=== PATIENT | male | born 1940 | race Caucasian/White ===

== ENCOUNTER 2018-10-08 19:04 | Inpatient (IN) ==
[2018-10-09] MEDS ORDERED: Metoprolol Tartrate 25 MG Tablet PO SCH ×2 (05:00→11:45)
[2018-10-09 05:04] LABS: Hematocrit 39.8 % (39.0-51.0); Hemoglobin 13.6 gm/dL (13.0-17.0); Mean Corpuscular HGB Conc 34.1 % (32.0-36.0); Mean Corpuscular Hemoglobin 32.5 pg (27.0-34.0); Mean Corpuscular Volume 95.1 fL (80.0-100.0); Mean Platelet Volume 7.4 fL (7.0-11.0); Platelet Count 145 th/mm3 (150-450); Red Blood Count 4.18 mil/mm3 (4.50-5.90); Red Cell Distribution Width 13.9 % (11.6-17.2); White Blood Count 6.2 th/mm3 (4.0-11.0)
[2018-10-09 05:34] LABS: Calcium 8.2 mg/dL (8.5-10.1); Carbon Dioxide 27.3 meq/L (21.0-32.0); Potassium 4.2 meq/L (3.5-5.1)
[2018-10-09] MEDS ORDERED: Bacitracin Oint 0.9 GM Packet TOPICAL ONE (08:00)
[2018-10-09] MEDS ORDERED: Insulin Regular (For Infusion) 100 UNIT in Sodium Chlor 0.9% Inj 99 ML IV.CONT PRN (11:01)
[2018-10-09] MEDS ORDERED: Dextrose 50% in Water 50 ML Vial IV.PUSH PRN (11:01)
[2018-10-09] MEDS ORDERED: Acetaminophen 325 MG Tablet PO PRN (11:08)
[2018-10-09] MEDS: Enoxaparin Inj 100 MG/ML Syringe SQ SCH ×2 (11:08→21:21)
[2018-10-09] MEDS ORDERED: Chlorhexidine 4% Topical 120 APPLIC/120 ML Bottle TOPICAL SCH (11:15)
[2018-10-09] MEDS ORDERED: Sodium Chlor 0.9% Inj 77.5 ML, Papaverine Inj 60 MG, Nitroglycerin Inj 100 MCG, dilTIAZ... IRRIGATION SCH ×3 (11:15)
[2018-10-09] MEDS ORDERED: Sodium Chloride 0.9% Irr Bot 500 ML, ceFAZolin Inj 500 MG IRRIGATION SCH ×2 (11:15)
[2018-10-09] MEDS ORDERED: ceFAZolin 2 GM Premix Inj 2 GM/50 ML PIGGYBACK IV.SIG SCH (12:00)
[2018-10-09] MEDS ORDERED: ceFAZolin Inj 2,000 MG in Sodium Chlor 0.9% Inj 80 ML IV.SIG SCH (12:00)
[2018-10-09 12:22] LABS: INR 1.1 Ratio; Prothrombin Time 11.2 sec (9.8-11.6)
--- NOTE | 2018-10-09 12:22 | P.PNCV ---
- Note Subjective/Hospital Course: pt seen and evaluated, full consult to follow sts data discussed with pt RISK SCORES Procedure: Isolated CAB CALCULATE Risk of Mortality: 2.596% Renal Failure: 1.255% Permanent Stroke: 0.841% Prolonged Ventilation: 5.892% DSW Infection: 0.135% Reoperation: 2.092% Morbidity or Mortality: 9.578% Short Length of Stay: 35.959% Long Length of Stay: 4.975% Objective: Vital Signs - 24 hr 10/08/18 20:30 10/09/18 07:56 10/09/18 11:06 Temperature 97.8 F 98 F 98 F Pulse Rate 58 L 67 62 Respiratory Rate 18 17 17 Blood Pressure 105/55 L 123/63 111/61 Pulse Oximetry 96 100 100 Labs: Laboratory Results - last 12 hr 10/09/18 10/09/18 10/09/18 04:52 04:52 11:50 WBC 6.2 RBC 4.18 L Hgb 13.6 Hct 39.8 MCV 95.1 MCH 32.5 MCHC 34.1 RDW 13.9 Plt Count 145 L MPV 7.4 Sodium 143 Potassium 4.2 Chloride 109 H Carbon Dioxide 27.3 Anion Gap 7 BUN 16 Creatinine 0.89 Estimated GFR 83 L Random Glucose 99 Calcium 8.2 L Blood Type O Positive Blood Type Recheck Required MTS Gel Crossmatch See Detail Result Diagrams: 10/09/18 04:52 10/09/18 04:52
[2018-10-09 12:29] LABS: Albumin 3.2 g/dL (3.4-5.0)
[2018-10-09 12:32] LABS: Total Protein 7.2 g/dL (6.4-8.2)
--- NOTE | 2018-10-09 13:22 | XR ---
EXAM DATE: 10/09/2018 1:19 PM EST AGE/SEX: 78 years / Male INDICATIONS: Evaluate for pneumonia, pneumothorax, or communicable disease. Pre-op cardiac surgery. CLINICAL DATA: This is the patient's initial encounter. Patient reports that signs and symptoms have been present for 1 day and indicates a pain score of 0/10. MEDICAL/SURGICAL HISTORY: Cardiovascular disease. None. COMPARISON: No prior exams available for comparison. FINDINGS: PA and lateral views of the chest demonstrate the lungs to be symmetrically aerated without evidence of mass, infiltrate or effusion. The cardiomediastinal contours are unremarkable. Mild degenerative c hanges and scoliosis of the thoracolumbar spine are noted. CONCLUSION: 1. No acute cardiopulmonary disease. 2. Mild degenerative changes and scoliosis of the thoracolumbar spine. Electronically signed by: Nathan Sahu MD Board Certified Radiologist 10/09/2018 1:21 PM EST
[2018-10-09 13:36] LABS: Bilirubin,Urine Negative (Negative); Clarity,Urine Clear (Clear); Color,Urine Yellow (Yellw/Straw); Glucose,Urine (UA) Negative (Negative); Leukocyte Esterase,Urine Negative (Negative); Mucus,Urine Few /lpf (Occasional); Nitrite,Urine Negative (Negative); Specific Gravity,Urine 1.017 (1.002-1.035)
--- NOTE | 2018-10-09 14:40 | US ---
EXAM DATE: 10/09/2018 2:37 PM EST AGE/SEX: 78 years / Male INDICATIONS: Pre op cardiac surgery. CLINICAL DATA: This is the patient's initial encounter. Patient reports that signs and symptoms have been present for 1 day and indicates a pain score of 0/10. MEDICAL/SURGICAL HISTORY: . Throat cancer. Chemotherapy. Radiation therapy. Tonsillectomy. Ap pendectomy. Aortic stent. Back surgery. Left wrist fracture repair. Right elbow surgery. COMPARISON: No prior exams available for comparison. VELOCITY PARAMETERS: ICA/CCA Ratio: Right 0.9 , Left 0.6 ICA: Right 69 cm/sec, Left 62 cm/sec CCA: Right 78 cm/sec, Left 98 cm/sec ECA: Right 66 cm/sec, Left 60 cm/sec Vertebral: Right 50 cm/sec antegrade, Left 49 cm/sec antegrade FINDINGS: Right Carotid: No significant plaque is visualized.The waveforms are within normal limits. Left Carotid: No significant plaque is visualized. The waveforms are within normal limits. Other: None. CONCLUSION: 1. Right Internal Carotid Artery: No significant stenosis or atherosclerotic plaque is visualized. 2. Left Internal Carotid Artery: No significant stenosis or atherosclerotic plaque is visualized. Electronically signed by: Nathan Sahu MD Board Certified Radiologist 10/09/2018 2:39 PM EST
--- NOTE | 2018-10-09 14:44 | US ---
EXAM DATE: 10/09/2018 2:40 PM EST AGE/SEX: 78 years / Male INDICATIONS: Pre op cardiac surgery. CLINICAL DATA: This is the patient's initial encounter. Patient reports that signs and symptoms have been present for 1 day and indicates a pain score of 0/10. MEDICAL/SURGICAL HISTORY: . Throat cancer. Chemotherapy. Radiation therapy. Tonsillectomy. Ap pendectomy. Aortic stent. Back surgery. Left wrist fracture repair. Right elbow surgery. COMPARISON: No prior exams available for comparison. TECHNIQUE: Venous ultrasound of both lower extremities was performed from the inguinal ligament to t he proximal calf. Real-time, color Doppler and spectral tracing, compression and augmentation techni ques were used. FINDINGS: Right Leg: Normal compression of the deep venous system from the inguinal region to the proximal jimmy f. No echogenic clot is seen. Normal response of the venous system to augmentation and respiration. Left Leg: Normal compression of the deep venous system from the inguinal region to the proximal calf . No echogenic clot is seen. Normal response of the venous system to augmentation and respiration. Other: None. CONCLUSION: 1. The study is negative for bilateral lower extremity deep venous thrombosis. Electronically signed by: Nathan Sahu MD Board Certified Radiologist 10/09/2018 2:43 PM EST
--- NOTE | 2018-10-09 14:46 | US ---
EXAM DATE: 10/09/2018 2:38 PM EST AGE/SEX: 78 years / Male INDICATIONS: Pre op cardiac surgery. CLINICAL DATA: This is the patient's initial encounter. Patient reports that signs and symptoms have been present for 1 day and indicates a pain score of 0/10. MEDICAL/SURGICAL HISTORY: . Throat cancer. Chemotherapy. Radiation therapy. Tonsillectomy. Ap pendectomy. Aortic stent. Back surgery. Left wrist fracture repair. Right elbow surgery. COMPARISON: [facility] – [place] VENOUS DOPPLER LEG BI, 10/09/2018. . MEASUREMENTS: RIGHT THIGH: Proximal:__5 mm Mid:__ 3 mm Distal:__3 mm LEFT THIGH: Proximal:__7 mm Mid:__4 mm Distal:__3 mm RIGHT CALF: Proximal:__3 mm Mid:__2 mm Distal:__2 mm LEFT CALF: Proximal:__4 mm Mid:__3 mm Distal:__2 mm FINDINGS: The venous system of the lower extremities are patent by color Doppler imaging. Measurements of the leg veins (in mm) are listed above. CONCLUSION: 1. Lower extremity venous mapping and measurements are detailed above. No thrombosis is noted within either saphenous vein. Electronically signed by: Nathan Sahu MD Board Certified Radiologist 10/09/2018 2:45 PM EST
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
[2018-10-09 16:45] LABS: Hemoglobin A1c 5.5 % (4.3-6.0)
[2018-10-10] MEDS: Enoxaparin Inj 100 MG/ML Syringe SQ SCH (09:16)
--- NOTE | 2018-10-10 15:50 | ECG ---
Date Performed: 10/09/2018 Time Performed: 15:01:42 PTAGE: 78 years EKG: Sinus rhythm Possible inferior infarct - age undetermined Lateral ST-T changes may be due to myocardial ischemia Abnormal ECG NO PREVIOUS TRACING DOCTOR: Jimmy Sloan Interpretating Date/Time 10/10/2018 15:48:43
--- NOTE | 2018-10-10 16:48 | P.PNCV ---
- Note Subjective/Hospital Course: A 78-year-old male, patient of Dr. Henry Leahy, Dr. Fina Rodney, who presented to [facility] on 10/07/2018 with complaint of fatigue and nausea. Apparently the morning that he was admitted, he felt lightheaded and dizzy after mowing his lawn and weedwacking, went back inside and laid down and felt a little better, and then the same symptoms recurred. He also had pain and discomfort down his right arm and then had some shakiness in his right hand and also a headache. Denied having any chest pain or shortness of breath. No nausea or vomiting. He did have some elevated troponins and was ruled in for a non-STEMI. Troponin elevated at 1.16. He underwent a cardiac catheterization following the CT scan which showed no acute intracranial hemorrhage, some gross brain parenchymal edema or mass effect. They proceeded with a heart catheterization which showed an ejection fraction of 45%, left main disease of 60%, mid LAD 90% stenosis, the left circumflex was 90%, the first OM was 90% and the RCA was 95% stenosed. The patient was then transferred to our facility to be evaluated for coronary artery bypass grafting. 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 Mederos every 6 months, gastroesophageal reflux disease, arthritis. 10/10 pt pain free scheduled for surgery in am carotid US: Ok lower ext vein mapping : Ok Objective: Vital Signs - 24 hr 10/09/18 17:03 10/09/18 17:24 10/09/18 18:12 Temperature 97.8 F Pulse Rate 72 68 56 L Respiratory Rate 17 Blood Pressure 113/58 L Pulse Oximetry 98 10/09/18 19:00 10/09/18 20:00 10/09/18 21:00 Temperature Pulse Rate 60 76 76 Respiratory Rate Blood Pressure Pulse Oximetry 10/09/18 22:00 10/09/18 23:00 10/10/18 00:00 Temperature Pulse Rate 76 55 L 78 Respiratory Rate Blood Pressure Pulse Oximetry 10/10/18 01:00 10/10/18 02:00 10/10/18 03:00 Temperature Pulse Rate 76 76 60 Respiratory Rate Blood Pressure Pulse Oximetry 10/10/18 04:00 10/10/18 05:00 10/10/18 06:00 Temperature Pulse Rate 76 74 73 Respiratory Rate Blood Pressure Pulse Oximetry 10/10/18 07:00 10/10/18 08:00 10/10/18 09:00 Temperature Pulse Rate 61 72 62 Respiratory Rate Blood Pressure Pulse Oximetry 10/10/18 09:15 10/10/18 10:00 10/10/18 11:00 Temperature 98 F Pulse Rate 60 60 59 L Respiratory Rate 17 Blood Pressure 105/55 L Pulse Oximetry 95 10/10/18 11:21 10/10/18 12:00 10/10/18 13:00 Temperature 97.9 F Pulse Rate 58 L 62 76 Respiratory Rate 16 Blood Pressure 101/61 Pulse Oximetry 97 10/10/18 14:00 10/10/18 15:00 10/10/18 15:52 Temperature 97.8 F Pulse Rate 64 63 59 L Respiratory Rate 16 Blood Pressure 97/64 L Pulse Oximetry 96 10/10/18 16:00 Temperature Pulse Rate 61 Respiratory Rate Blood Pressure Pulse Oximetry GENERAL: SKIN: Warm and dry. HEAD: Normocephalic. EYES: No scleral icterus. No injection or drainage. NECK: Supple, trachea midline. No JVD or lymphadenopathy. CARDIOVASCULAR: Regular rate and rhythm without murmurs, gallops, or rubs. RESPIRATORY: Breath sounds equal bilaterally. No accessory muscle use. GASTROINTESTINAL: Abdomen soft, non-tender, nondistended. MUSCULOSKELETAL: No cyanosis, or edema. BACK: Nontender without obvious deformity. No CVA tenderness. Result Diagrams: 10/09/18 04:52 10/09/18 04:52 for surgery in am o ASA, statin
[2018-10-11] MEDS ORDERED: Chlorhexidine Gluconate 2% 1 Pack (2 Cloths) TOPICAL ONE (02:48)
[2018-10-11] MEDS ORDERED: Metoprolol Tartrate 25 MG Tablet PO SCH (02:48)
[2018-10-11] MEDS ORDERED: Sodium Chlor 0.9% Inj 500 ML IV.SIG SCH (03:00)
[2018-10-11] MEDS ORDERED: Heparin - SQ 10,000 UNITS/ML Vial ONE (06:07)
[2018-10-11] MEDS ORDERED: ceFAZolin 1 GM Premix Inj 1 GM/50 ML PIGGYBACK IV.SIG ONE (11:29)
[2018-10-11] MEDS ORDERED: Potassium Chlor 40 mEq Premix 40 MEQ/100 ML PIGGYBACK ONE (11:36)
[2018-10-11] MEDS ORDERED: Magnesium Sulfate Inj 2 GM in Sodium Chlor 0.9% Inj 96 ML IV.SIG PRN (12:02)
[2018-10-11] MEDS ORDERED: Potassium Chlor 20 mEq Premix 20 MEQ/100 ML PIGGYBACK IV.SIG PRN ×2 (12:02)
[2018-10-11] MEDS ORDERED: Insulin Regular (For Infusion) 100 UNIT in Sodium Chlor 0.9% Inj 99 ML IV.CONT PRN (12:02)
[2018-10-11] MEDS ORDERED: Calcium Chloride Inj 1 GM/10 ML Syringe IV.PUSH PRN (12:02)
[2018-10-11] MEDS ORDERED: Dexmedetomidine Inj 200 MCG in Sodium Chlor 0.9% Inj 48 ML IV.CONT PRN (12:02)
[2018-10-11] MEDS ORDERED: Post-op Orders (for Pharmacy) OTHER STA (12:02)
[2018-10-11] MEDS ORDERED: RESP: Racemic Epinephrine 2.25% 0.5 ML Neb NEB PRN (12:02)
[2018-10-11] MEDS ORDERED: Dextrose 50% in Water 50 ML Vial IV.PUSH PRN (12:02)
[2018-10-11] MEDS ORDERED: Phenylephrine Inj 40 MG in Sodium Chlor 0.9% Inj 496 ML IV.CONT PRN (12:02)
[2018-10-11] MEDS ORDERED: EPINEPHrine (1:1000) Inj 2 MG in Sodium Chlor 0.9% Inj 248 ML IV.CONT PRN (12:02)
[2018-10-11] MEDS ORDERED: Metoprolol Inj 5 MG/5 ML Vial IV.PUSH PRN (12:02)
[2018-10-11] MEDS ORDERED: Ketorolac Inj 30 MG/ML (IVP) Vial IV.PUSH PRN (12:02)
[2018-10-11] MEDS ORDERED: Morphine Sulfate Inj 2 MG/ML Vial IV.PUSH PRN (12:02)
--- NOTE | 2018-10-11 12:09 | P.OP ---
Date of procedure: 10/11/18 Anesthesia: IRMA Surgeon: Lakeisha Feliciano MD Operation and Findings: PREPROCEDURE DIAGNOSES 1. Severe Multi Vessel Coronary Artery Disease. 2. Acute Myocardial Infarction (NSTEMI) POSTPROCEDURE DIAGNOSES Same SURGICAL PROCEDURE 1. Urgent Off-pump Coronary Artery Bypass Grafting x 3 with Left Internal Mammary Artery (SHRESTHA) to Left Anterior Descending (LAD), reverse saphenous vein graft to obtuse Marginal branch of the left Circumflex artery, reverse saphenous vein graft to the posterior Descending branch of the right Coronary artery 2. Left leg Endoscopic Vein [place] 3. Intraoperative Vein Mapping. SURGEON Lakeisha Feliciano MD STUDENT TRUCK DRIVER JO ANN Brito ANESTHESIA General endotracheal CONTINUOUS MINER TONY Velasquez MD PREPARATION ChloraPrep. COUNTS Needle, sponge, and instrument counts were correct. DRAINS Two 32-Wolof mediastinal tubes. COMPLICATIONS None. INDICATIONS FOR PROCEDURE The patient is a 78-year-old presenting with right arm pain, nausea and dizziness. Patient was noted to have acute myocardial infarction with multi vessel coronary artery disease. The patient is being brought to the operating room for surgical revascularization therapy. PROCEDURE Patient was brought to the operating room and placed supine on the OR table. Following the induction of adequate general endotracheal anesthesia and placement of appropriate monitoring devices, intraoperative vein mapping was performed which revealed large but usable-caliber conduit in bilateral lower extremities. The patient was then prepped and draped in standard sterile fashion. Next, 2500 units of intravenous heparin was given. The left greater saphenous vein was harvested endoscopically. This appeared to be a useable- caliber conduit. Simultaneously, a median sternotomy was performed and the left internal mammary artery dissected free off the posterior sternal table. The patient was systemically heparinized and anticoagulation monitored by serial ACT measurements. The internal mammary artery had good pulsatile flow in it and was a good-caliber conduit. The pericardium was then divided in the midline , the cradle created and targets analyzed. At this point, all anastomoses were performed in a beating-heart fashion using the [employer] stabilizing system. The left internal mammary artery was anastomosed to the mid LAD (2 mm) in an end-to- side fashion using 7-0 Prolene. Segment of saphenous vein graft was then anastomosed to the OM1 (1.5 mm) in an end-to-side fashion using 7-0 Prolene. The final segment was anastomosed to the RPDA (1.75 mm) in an end-to-side fashion using 7-0 Prolene. The OM 2 territory was explored, however, the target vessel was deemed to be too small and nongraftable at less than 1 mm. The proximal anastomoses were then constructed to the ascending aorta in a running manner using 6-0 Prolene. All anastomotic sites were inspected and appeared to be hemostatic and patent. Protamine solution was given. Strict hemostasis was assured. The closure was undertaken. 2 chest tubes were placed. The pericardium was reapproximated in the midline. The sternum was approximated using sternal wires. The muscular and fascial layer were then closed in 3 layers. The endoscopic vein harvest site was closed in 2 layers. The patient tolerated the procedure well and was transferred to CVICU in stable condition.
[2018-10-11] MEDS ORDERED: ceFAZolin Inj 2,000 MG in Sodium Chlor 0.9% Inj 80 ML IV.SIG SCH (13:00)
[2018-10-11] MEDS ORDERED: fentaNYL Citrate Inj 250 MCG/5 ML Ampul ONE (13:04)
[2018-10-11] MEDS: Calcium Chloride Inj 1 GM in Sodium Chlor 0.9% Inj 100 ML IV.SIG PRN ×2 (13:17→19:52)
[2018-10-11] MEDS: Albumin Human 5% Inj 250 ML IV.SIG PRN ×2 (13:19→13:55)
--- NOTE | 2018-10-11 13:48 | XR ---
EXAM DATE: 10/11/2018 1:44 PM EST AGE/SEX: 78 years / Male INDICATIONS: Post-OP CABG. CLINICAL DATA: This is the patient's subsequent encounter. Patient reports that signs and symptoms h ave been present for 3 days and indicates a pain score of Nonresponsive. MEDICAL/SURGICAL HISTORY: Non-responsive. Non-responsive. COMPARISON: [facility] – [place], CHEST 2V PA&LAT, 10/09/2018. . FINDINGS: ET tube and left chest tube in good position. Left central line in good position. Minimal bibasilar p arental changes worse on the left Mediastinum appears appropriate. CONCLUSION: Satisfactory postoperative chest. Electronically signed by: Wally Hamlin MD Board Certified Radiologist 10/11/2018 1:46 PM EST
--- NOTE | 2018-10-11 14:27 | P.DCO ---
- Diagnosis (1) S/P CABG x 3 Status: Acute (2) CAD (coronary artery disease), [place] coronary artery Status: Acute (3) Hyperlipidemia Status: Chronic (4) Hx of tongue cancer Status: Resolved - Home Health Nursing Order: Medical education, Signs/symptoms of disease process, Wound care and dressing changes, Nursing assessment with vital signs Instructions: Heart and Vascular Surgery patients *Special attention to sternal dressing Mandatory frequency Assess and evaluation, 4 days in a row The next week 3X week 2 times a week for 4 weeks 1 time a week for 5 weeks Schedule Heart and Vascular patients for full 60 day certification period Initial visit Review Open Heart Surgery Discharge Instructions (Sternal precautions, Activity, Elastic hose, Incision care, Driving, Incentive spirometry, Smoking, [place], Work and other) Need Betadine to paint incision Medication reconciliation Importance of follow up care/ check on appointments Make calendar record temperature daily When to call [facility] at Home nurse, review instructions, phone list Incentive Spirometry, demonstration Visit 1- Begin discharge instruction for patient family and/ or caregiver using teach back method- Signs and symptoms of infection Disease characteristics Medicines and side effects Foods and nutrition/ appetite Infection control/ hand washing/ hygiene Visit 2- Continue teaching Discharge instructions- include additional information on smoking cessation , sternal dressing (sternal vac) Visit 3- Continue teaching- Cough and deep breathing, incision monitoring. Choose my plate Visit 4- Continue teaching- Discuss limitations Discuss how they are feeling Discuss progress toward goals Remaining visits- continue teaching and monitoring For any questions please call : Sunday 8am-5pm Heart & Vascular Surgery Office ( Dr. Feliciano & Dr. Valencia), After Hours / Nights (5pm -8am) Weekends and Holidays Please call [facility] Cardiac Intermediate Care Unit (CIC) Charge Nurse PREVENA Single Use Negative Wound Therapy System Caregiver Instruction Sheet 1. A Prevena dressing system was applied to the chest incision during surgery , to promote wound healing. It works via a suction device (negative pressure wound therapy) to remove low to moderate levels of exudate (drainage) and infectious materials. We recommend that the device stay in place for up to seven days, from day of surgery. 2. Day of Surgery___/ Day of Removal 3. The dressing should only be removed by a health cna caregiver. Please arrange removal of device to coincide with Home Health visit and or with Nursing staff at Rehab 4. If skin reddening or irritation of skin occurs, or excessive drainage, please notify the Cardiovascular Surgeons office at [phone]. 5. Light showering is permissible; however the pump should be disconnected and placed in safe location, where it will not get wet. The dressing should not be exposed to direct spray or submerged in water. No bath tub / shower only. Ensure the end of the tubing attached to the dressing is facing down so that water does not enter the top of the tube. 6. To remove Prevena dressing: press purple button to turn off device / remove the suction. Then disconnect the tubing from the pump. The fixation strips should be stretched away from the skin and the dressing lifted at one corner and peeled back until it has been fully removed. 7. After removal, it is ok to shower daily using liquid dial soap and clean wash cloth, rinse and pat dry, and leave incision open to air dry. For any concerns regarding Prevena dressing, and or wounds, please contact Cristina Mosquera, patient navigator at [phone] or notify the Cardiovascular Surgeons office at [phone]. Incentive spirometry Q1 hr x 10, while awake, also use acapella device hourly whole awake Sternal Breast Bone Precautions: NO pushing or pulling, ( pt must use sternal pillow to support chest with all activities and with coughing ( takes up to 3 months breast bone to heal ) Daily incision care: ok to shower daily, no tub bath. Wash all incisions with liquid dial soap, clean wash cloth to each site, rinse and pat dry. Observe for any signs of infection, such as drainage which is dark yellow, ndiaye, green or foul smelling. Immediately report to the surgeon any drainage from the chest incision, or legs, and for any abnormal drainage from the chest tube sites. Notify surgeon if any temp >101.5 degrees F. When specialty dressing removed/ or if you do not have one, continue to shower daily as above, then rinse and pat incision dry and paint with betadine daily x 5 days. Allow steri strips to fall off if you have any. Avoid lotions, creams, salves, oils, etc. for the first month Please see attached forms for additional instructions regarding post Open Heart specialty wound vacuum dressings. ANGÉLICA or Prevena , Dressing to be removed by Nursing staff on __10/18/18 F/U appointment: as per [place] instructions: PCP in 2 weeks, CV surgeon 2 weeks, Granulating Machine Operator 3-4 weeks For any questions regarding incisions/ dressing / meds / post op care or above Symptoms, Sunday 8am-5pm Heart & Vascular Surgery Office ( Dr. Feliciano & Dr. Valencia), After Hours / Nights (5pm -8am) Weekends and Holidays Please call [facility] Cardiac Intermediate Care Unit (CIC) Charge Nurse - Case Management Consult Case Management Consult-Home Health: Yes - Certification I have seen patient Wenceslao Ross on 10/11/18. My clinical findings support the need for the requested home health care services because: Deconditioned with increased weakness I certify that my clinical findings support that this patient is homebound because: Post-op weakness
[2018-10-11] MEDS: Potassium Chlor 20 mEq Premix 20 MEQ/100 ML PIGGYBACK IV.SIG PRN ×3 (16:15→20:13)
[2018-10-11] MEDS: ceFAZolin 2 GM Premix Inj 2 GM/50 ML PIGGYBACK IV.SIG SCH (20:53)
[2018-10-11] MEDS: Amiodarone 200 MG Tablet PO SCH (20:54)
[2018-10-12] MEDS: fentaNYL Citrate Inj 100 MCG/2 ML Ampul IV.PUSH PRN ×2 (01:00→03:45)
[2018-10-12 03:41] LABS: Hematocrit 26.4 % (39.0-51.0); Hemoglobin 9.2 gm/dL (13.0-17.0); Mean Corpuscular HGB Conc 34.9 % (32.0-36.0); Mean Corpuscular Hemoglobin 32.8 pg (27.0-34.0); Mean Corpuscular Volume 94.1 fL (80.0-100.0); Mean Platelet Volume 7.7 fL (7.0-11.0); Platelet Count 116 th/mm3 (150-450); Red Cell Distribution Width 13.7 % (11.6-17.2); White Blood Count 9.2 th/mm3 (4.0-11.0)
[2018-10-12] MEDS: ceFAZolin 2 GM Premix Inj 2 GM/50 ML PIGGYBACK IV.SIG SCH ×3 (04:00→20:43)
[2018-10-12 04:06] LABS: Anion Gap 6 meq/L (5-15); Blood Urea Nitrogen 16 mg/dL (7-18); Calcium 8.2 mg/dL (8.5-10.1); Carbon Dioxide 25.8 meq/L (21.0-32.0); Chloride 112 meq/L (98-107); Glomerular Filtration Rate Greater Than 89 mL/min (>89); Glucose,Random 128 mg/dL (74-106); Magnesium 1.7 mg/dL (1.5-2.5); Potassium 4.7 meq/L (3.5-5.1); Sodium 144 meq/L (136-145)
[2018-10-12] MEDS: Magnesium Sulfate Inj 2 GM in Sodium Chlor 0.9% Inj 96 ML IV.SIG PRN ×2 (04:30→07:52)
--- NOTE | 2018-10-12 04:49 | XR ---
EXAM DATE: 10/12/2018 4:03 AM EST AGE/SEX: 78 years / Male INDICATIONS: Shortness of breath, possible pneumothorax. CLINICAL DATA: This is the patient's subsequent encounter. Patient reports that signs and symptoms h ave been present for 4 - 6 days and indicates a pain score of 8/10. MEDICAL/SURGICAL HISTORY: Carcinoma, esophageal. CABG. Tonsillectomy. Appendectomy. [place] [facility] [place]. . FINDINGS: Single view the chest centered the left subclavian line, left-sided chest tube and mediastinal drain are all stable. There is no visible pneumothorax. Minimal consolidation in the left lower lobe with s mall pleural effusion. Small pleural effusion on the right. There is a subtle interface overlying the right lung apex similar to the left not classic for pneumothorax. CONCLUSION: Bilateral pleural effusions and some consolidation left lung base unchanged. Tubes and catheter in go od position. No definite pneumothorax seen. There is a subtle interface overlying the right lung apex tip could represent a tiny pneumothorax. It is certainly not any larger. Electronically signed by: Sage Jose MD Board Certified Radiologist 10/12/2018 4:48 AM EST
--- NOTE | 2018-10-12 07:40 | P.PNCV ---
- Note Subjective/Hospital Course: A 78-year-old male, patient of Dr. Henry Leahy, Dr. Fina Rodney, who presented to [facility] on 10/07/2018 with complaint of fatigue and nausea. Apparently the morning that he was admitted, he felt lightheaded and dizzy after mowing his lawn and weedwacking, went back inside and laid down and felt a little better, and then the same symptoms recurred. He also had pain and discomfort down his right arm and then had some shakiness in his right hand and also a headache. Denied having any chest pain or shortness of breath. No nausea or vomiting. He did have some elevated troponins and was ruled in for a non-STEMI. Troponin elevated at 1.16. He underwent a cardiac catheterization following the CT scan which showed no acute intracranial hemorrhage, some gross brain parenchymal edema or mass effect. They proceeded with a heart catheterization which showed an ejection fraction of 45%, left main disease of 60%, mid LAD 90% stenosis, the left circumflex was 90%, the first OM was 90% and the RCA was 95% stenosed. The patient was then transferred to our facility to be evaluated for coronary artery bypass grafting. 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 Medreos every 6 months, gastroesophageal reflux disease, arthritis. 10/10 pt pain free scheduled for surgery in am carotid US: Ok lower ext vein mapping : Ok 10/11 SURGICAL PROCEDURE 1. Urgent Off-pump Coronary Artery Bypass Grafting x 3 with Left Internal Mammary Artery (SHRESTHA) to Left Anterior Descending (LAD), reverse saphenous vein graft to obtuse Marginal branch of the left Circumflex artery, reverse saphenous vein graft to the posterior Descending branch of the right Coronary artery 2. Left leg Endoscopic Vein [place] 3. Intraoperative Vein Mapping. 10/12 Doing well Hemodynamically and clinically stable. Off of epinephrine drip Transfer CPCU Maintain chest tube Electrolyte supplementation Objective: Vital Signs - 24 hr 10/11/18 12:39 10/11/18 13:00 10/11/18 15:00 Temperature 97.4 F L 97.3 F L Pulse Rate 63 60 Respiratory Rate 10 L 11 L 9 L Blood Pressure 108/69 107/66 Pulse Oximetry 98 98 99 12/21/18 17:00 10/11/18 18:17 10/11/18 19:00 Temperature 97.9 F Pulse Rate 67 66 Respiratory Rate 18 10 L 14 Blood Pressure 118/67 Pulse Oximetry 99 10/11/18 20:25 10/11/18 23:00 10/12/18 03:00 Temperature 98.4 F 98.1 F Pulse Rate 75 66 71 Respiratory Rate 14 18 20 Blood Pressure 109/64 116/65 Pulse Oximetry 98 98 99 10/12/18 03:19 10/12/18 03:54 Temperature Pulse Rate 99 H 80 Respiratory Rate 14 Blood Pressure Pulse Oximetry Labs: Laboratory Results - last 12 hr 10/11/18 10/11/18 10/11/18 19:50 21:22 22:54 WBC RBC Hgb Hct MCV MCH MCHC RDW Plt Count MPV Sodium Potassium Chloride Carbon Dioxide Anion Gap BUN Creatinine Estimated GFR POC Glucose 136 H 106 143 H Random Glucose Calcium Magnesium 10/12/18 10/12/18 10/12/18 00:15 01:13 02:53 WBC RBC Hgb Hct MCV MCH MCHC RDW Plt Count MPV Sodium Potassium Chloride Carbon Dioxide Anion Gap BUN Creatinine Estimated GFR POC Glucose 124 H 109 93 Random Glucose Calcium Magnesium 10/12/18 10/12/18 10/12/18 03:35 03:35 05:14 WBC 9.2 RBC 2.80 L Hgb 9.2 L Hct 26.4 L MCV 94.1 MCH 32.8 MCHC 34.9 RDW 13.7 Plt Count 116 L MPV 7.7 Sodium 144 Potassium 4.7 Chloride 112 H Carbon Dioxide 25.8 Anion Gap 6 BUN 16 Creatinine 0.67 Estimated GFR Greater than 89 POC Glucose 126 H Random Glucose 128 H Calcium 8.2 L Magnesium 1.7 10/12/18 10/12/18 06:20 07:22 WBC RBC Hgb Hct MCV MCH MCHC RDW Plt Count MPV Sodium Potassium Chloride Carbon Dioxide Anion Gap BUN Creatinine Estimated GFR POC Glucose 122 H 88 Random Glucose Calcium Magnesium Result Diagrams: 10/12/18 03:35 10/12/18 03:35
[2018-10-12] MEDS ORDERED: Bisacodyl 10 MG Supp RECTAL PRN (07:41)
[2018-10-12] MEDS ORDERED: Sod Phosphate/Sod Biphosphate (Adult) Enema 133 ML Bottle RECTAL PRN (07:41)
[2018-10-12] MEDS: Docusate Sodium 100 MG Capsule PO PRN (08:42)
[2018-10-12] MEDS: Multivitamin/Minerals Therapeutic Tablet PO SCH (08:42)
[2018-10-12] MEDS: Amiodarone 200 MG Tablet PO SCH ×2 (08:43→20:43)
[2018-10-12] MEDS: Insulin NovoLOG Aspart Correctional Sugar Inj SQ SCH ×4 (10:17→23:09)
[2018-10-12] MEDS: Metoprolol Tartrate 25 MG Tablet PO SCH (20:44)
[2018-10-13] MEDS: Insulin NovoLOG Aspart Correctional Sugar Inj SQ SCH ×6 (04:00→22:34)
[2018-10-13] MEDS: ceFAZolin 2 GM Premix Inj 2 GM/50 ML PIGGYBACK IV.SIG SCH (05:06)
[2018-10-13 05:52] LABS: Baso % (Auto) 0.1 % (0.0-2.0); Eos % (Auto) 0.2 % (0.0-4.0); Hematocrit 22.2 % (39.0-51.0); Hemoglobin 7.6 gm/dL (13.0-17.0); Lymph # (Auto) 0.8 th/mm3 (1.0-4.8); Lymph % (Auto) 8.3 % (9.0-44.0); Mean Corpuscular HGB Conc 34.3 % (32.0-36.0); Mean Corpuscular Hemoglobin 32.6 pg (27.0-34.0); Mean Corpuscular Volume 94.9 fL (80.0-100.0); Mean Platelet Volume 8.1 fL (7.0-11.0); Mono # (Auto) 0.9 th/mm3 (0.0-0.9); Mono % (Auto) 9.6 % (0.0-8.0); Neut # (Auto) 7.4 th/mm3 (1.8-7.7); Neut % (Auto) 81.8 % (16.0-70.0); Platelet Count 108 th/mm3 (150-450); Red Blood Count 2.34 mil/mm3 (4.50-5.90); Red Cell Distribution Width 14.4 % (11.6-17.2); White Blood Count 9.1 th/mm3 (4.0-11.0)
[2018-10-13 06:02] LABS: Anion Gap 9 meq/L (5-15); Blood Urea Nitrogen 19 mg/dL (7-18); Carbon Dioxide 25.5 meq/L (21.0-32.0); Chloride 107 meq/L (98-107); Glomerular Filtration Rate Greater Than 89 mL/min (>89); Glucose,Random 116 mg/dL (74-106); Magnesium 1.9 mg/dL (1.5-2.5); Potassium 4.3 meq/L (3.5-5.1); Sodium 141 meq/L (136-145)
[2018-10-13] MEDS: Amiodarone 200 MG Tablet PO SCH ×2 (08:27→20:17)
[2018-10-13] MEDS: Polyethylene Glycol 3350 17 GM Packet PO SCH (08:27)
[2018-10-13] MEDS: Multivitamin/Minerals Therapeutic Tablet PO SCH (08:27)
[2018-10-13] MEDS: Metoprolol Tartrate 25 MG Tablet PO SCH ×2 (08:28→20:17)
--- NOTE | 2018-10-13 09:18 | P.DIET ---
Nutritional Evaluation Type of nutrition evaluation: initial Screening comments: MDC Education: Pt s/p CABG day 2: Patient Navigator to provide education. Consult RD if complexities with diet education arises
--- NOTE | 2018-10-13 09:37 | P.PNCV ---
- Note Subjective/Hospital Course: A 78-year-old male, patient of Dr. Henry Leahy, Dr. Fina Rodney, who presented to [facility] on 10/07/2018 with complaint of fatigue and nausea. Apparently the morning that he was admitted, he felt lightheaded and dizzy after mowing his lawn and weedwacking, went back inside and laid down and felt a little better, and then the same symptoms recurred. He also had pain and discomfort down his right arm and then had some shakiness in his right hand and also a headache. Denied having any chest pain or shortness of breath. No nausea or vomiting. He did have some elevated troponins and was ruled in for a non-STEMI. Troponin elevated at 1.16. He underwent a cardiac catheterization following the CT scan which showed no acute intracranial hemorrhage, some gross brain parenchymal edema or mass effect. They proceeded with a heart catheterization which showed an ejection fraction of 45%, left main disease of 60%, mid LAD 90% stenosis, the left circumflex was 90%, the first OM was 90% and the RCA was 95% stenosed. The patient was then transferred to our facility to be evaluated for coronary artery bypass grafting. 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 Mederos every 6 months, gastroesophageal reflux disease, arthritis. 10/10 pt pain free scheduled for surgery in am carotid US: Ok lower ext vein mapping : Ok 10/11 SURGICAL PROCEDURE 1. Urgent Off-pump Coronary Artery Bypass Grafting x 3 with Left Internal Mammary Artery (SHRESTHA) to Left Anterior Descending (LAD), reverse saphenous vein graft to obtuse Marginal branch of the left Circumflex artery, reverse saphenous vein graft to the posterior Descending branch of the right Coronary artery 2. Left leg Endoscopic Vein [place] 3. Intraoperative Vein Mapping. 10/12 Doing well Hemodynamically and clinically stable. Off of epinephrine drip Transfer CPCU Maintain chest tube Electrolyte supplementation 10/13 Doing well Chest tube continued to drain thin serous fluid. Evaluate for removal in a.m. Hemoglobin 7.8. Monitor for now. Will place on iron sulfate Ambulating well with assistance Discharge planning Objective: Vital Signs - 24 hr 10/12/18 10:31 10/12/18 10:39 10/12/18 10:46 Temperature 98.4 F Pulse Rate 76 87 Respiratory Rate 18 16 Blood Pressure 110/59 L Pulse Oximetry 94 L 98 95 10/12/18 11:00 10/12/18 12:00 10/12/18 13:00 Temperature Pulse Rate 94 H 99 H 91 H Respiratory Rate Blood Pressure Pulse Oximetry 10/12/18 13:26 10/12/18 14:00 10/12/18 15:00 Temperature 98.0 F Pulse Rate 93 H 94 H 88 Respiratory Rate 16 18 Blood Pressure 108/62 Pulse Oximetry 97 10/12/18 16:00 10/12/18 17:00 10/12/18 18:00 Temperature Pulse Rate 88 86 85 Respiratory Rate Blood Pressure Pulse Oximetry 10/12/18 19:00 10/12/18 20:00 10/12/18 20:57 Temperature 98.5 F Pulse Rate 112 H 94 H 93 H Respiratory Rate 16 15 Blood Pressure 114/63 Pulse Oximetry 93 L 93 L 10/12/18 21:00 10/12/18 22:00 10/12/18 23:00 Temperature 98.3 F Pulse Rate 84 92 H 85 Respiratory Rate 16 Blood Pressure 137/66 Pulse Oximetry 95 10/13/18 00:00 10/13/18 01:00 10/13/18 02:00 Temperature Pulse Rate 94 H 86 90 Respiratory Rate Blood Pressure Pulse Oximetry 10/13/18 03:00 10/13/18 04:00 10/13/18 05:00 Temperature 98.5 F Pulse Rate 91 H 87 80 Respiratory Rate 16 Blood Pressure 114/63 Pulse Oximetry 93 L 10/13/18 06:00 10/13/18 08:07 Temperature Pulse Rate 84 80 Respiratory Rate 16 Blood Pressure Pulse Oximetry 95 Labs: Laboratory Results - last 12 hr 10/12/18 10/13/18 10/13/18 23:09 05:00 05:00 WBC 9.1 RBC 2.34 L Hgb 7.6 L Hct 22.2 L MCV 94.9 MCH 32.6 MCHC 34.3 RDW 14.4 Plt Count 108 L MPV 8.1 Neut % (Auto) 81.8 H Lymph % (Auto) 8.3 L [place] % (Auto) 9.6 H Eos % (Auto) 0.2 Baso % (Auto) 0.1 Neut # (Auto) 7.4 Lymph # (Auto) 0.8 L [place] # (Auto) 0.9 Eos # (Auto) 0.0 Baso # (Auto) 0.0 WBC Differential . Differential Comment Auto diff final Sodium 141 Potassium 4.3 Chloride 107 Carbon Dioxide 25.5 Anion Gap 9 BUN 19 H Creatinine 0.73 Estimated GFR Greater than 89 POC Glucose 122 H Random Glucose 116 H Calcium 8.0 L Magnesium 1.9 Result Diagrams: 10/13/18 05:00 10/13/18 05:00
[2018-10-13] MEDS: Ferrous Sulfate 325 MG Tablet PO SCH ×2 (13:01→17:43)
--- NOTE | 2018-10-14 01:12 | ECG ---
Date Performed: 10/12/2018 Time Performed: 05:58:26 PTAGE: 78 years EKG: Probable Sinus rhythm with PVC(s) and ventricular couplet Inferior infarct - age undetermined Abnormal ECG PREVIOUS TRACING : 10/09/2018 15.01 Compared to previous tracing, ST/T wave changes no longer noted DOCTOR: Lamonte Alvarado Interpretating Date/Time 10/14/2018 01:10:25
[2018-10-14] MEDS: Insulin NovoLOG Aspart Correctional Sugar Inj SQ SCH ×6 (04:00→22:50)
[2018-10-14] MEDS: Multivitamin/Minerals Therapeutic Tablet PO SCH (09:29)
[2018-10-14] MEDS: Metoprolol Tartrate 25 MG Tablet PO SCH ×2 (09:30→20:51)
[2018-10-14] MEDS: Amiodarone 200 MG Tablet PO SCH ×2 (09:30→20:51)
[2018-10-14] MEDS: Polyethylene Glycol 3350 17 GM Packet PO SCH (09:31)
--- NOTE | 2018-10-14 10:47 | P.PNCV ---
- Note Subjective/Hospital Course: A 78-year-old male, patient of Dr. Henry Leahy, Dr. Fina Rodney, who presented to [facility] on 10/07/2018 with complaint of fatigue and nausea. Apparently the morning that he was admitted, he felt lightheaded and dizzy after mowing his lawn and weedwacking, went back inside and laid down and felt a little better, and then the same symptoms recurred. He also had pain and discomfort down his right arm and then had some shakiness in his right hand and also a headache. Denied having any chest pain or shortness of breath. No nausea or vomiting. He did have some elevated troponins and was ruled in for a non-STEMI. Troponin elevated at 1.16. He underwent a cardiac catheterization following the CT scan which showed no acute intracranial hemorrhage, some gross brain parenchymal edema or mass effect. They proceeded with a heart catheterization which showed an ejection fraction of 45%, left main disease of 60%, mid LAD 90% stenosis, the left circumflex was 90%, the first OM was 90% and the RCA was 95% stenosed. The patient was then transferred to our facility to be evaluated for coronary artery bypass grafting. 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 Mederos every 6 months, gastroesophageal reflux disease, arthritis. 10/10 pt pain free scheduled for surgery in am carotid US: Ok lower ext vein mapping : Ok 10/11 SURGICAL PROCEDURE 1. Urgent Off-pump Coronary Artery Bypass Grafting x 3 with Left Internal Mammary Artery (SHRESTHA) to Left Anterior Descending (LAD), reverse saphenous vein graft to obtuse Marginal branch of the left Circumflex artery, reverse saphenous vein graft to the posterior Descending branch of the right Coronary artery 2. Left leg Endoscopic Vein [place] 3. Intraoperative Vein Mapping. 10/12 Doing well Hemodynamically and clinically stable. Off of epinephrine drip Transfer CPCU Maintain chest tube Electrolyte supplementation 10/13 Doing well Chest tube continued to drain thin serous fluid. Evaluate for removal in a.m. Hemoglobin 7.8. Monitor for now. Will place on iron sulfate Ambulating well with assistance Discharge planning 10/14 doing well, chest tube dc without difficulty recheck HGB and BMP gentle diuresis coughing up thick old bloody sputum on room air Objective: Vital Signs - 24 hr 10/13/18 11:00 10/13/18 12:00 10/13/18 13:00 Temperature 98.3 F Pulse Rate 79 79 78 Respiratory Rate 18 Blood Pressure 121/67 Pulse Oximetry 96 10/13/18 13:36 10/13/18 13:55 10/13/18 15:00 Temperature 98.2 F Pulse Rate 78 84 75 Respiratory Rate 16 19 Blood Pressure 118/65 Pulse Oximetry 94 L 95 10/13/18 15:46 10/13/18 17:00 10/13/18 17:40 Temperature Pulse Rate 93 H 79 85 Respiratory Rate Blood Pressure Pulse Oximetry 10/13/18 19:00 10/13/18 19:48 10/13/18 20:00 Temperature 98 F Pulse Rate 91 H 91 H 96 H Respiratory Rate 18 Blood Pressure 133/69 Pulse Oximetry 95 95 10/13/18 21:00 10/13/18 22:00 10/13/18 22:25 Temperature Pulse Rate 88 92 H 82 Respiratory Rate 16 Blood Pressure Pulse Oximetry 10/13/18 23:00 10/14/18 00:00 10/14/18 01:00 Temperature 98 F Pulse Rate 82 86 81 Respiratory Rate 18 Blood Pressure 111/64 Pulse Oximetry 95 95 10/14/18 02:00 10/14/18 03:00 10/14/18 04:00 Temperature 97.9 F Pulse Rate 81 80 80 Respiratory Rate 18 Blood Pressure 141/65 H Pulse Oximetry 95 96 10/14/18 05:00 10/14/18 06:00 10/14/18 07:00 Temperature 98.1 F Pulse Rate 88 92 H 77 Respiratory Rate 16 Blood Pressure 141/68 H Pulse Oximetry 93 L 10/14/18 08:00 10/14/18 08:58 10/14/18 09:00 Temperature Pulse Rate 90 110 H Respiratory Rate Blood Pressure Pulse Oximetry 94 L 10/14/18 10:00 Temperature Pulse Rate 88 Respiratory Rate Blood Pressure Pulse Oximetry GENERAL: A&O x 3 SKIN: Warm and dry. prevena dressing to chest, incision to left leg/ ecchymosis left leg upper medial thigh to medial lower thigh HEAD: Normocephalic. EYES: No scleral icterus. No injection or drainage. NECK: Supple, trachea midline. No JVD or lymphadenopathy. CARDIOVASCULAR: Regular rate and rhythm without murmurs, gallops, or rubs. RESPIRATORY: Breath sounds equal bilaterally. No accessory muscle use. diminished in bases GASTROINTESTINAL: Abdomen soft, non-tender, nondistended. MUSCULOSKELETAL: No cyanosis, or edema. BACK: Nontender without obvious deformity. No CVA tenderness. Labs: Laboratory Results - last 12 hr 10/14/18 10/14/18 04:04 07:38 POC Glucose 98 84 Result Diagrams: 10/13/18 05:00 10/13/18 05:00 - Plan (1) S/P CABG x 3 Plan: ASA, statin, BB , amiodarone recheck HGB today on iron replacement gentle diuresis pulm toileting
[2018-10-14] MEDS ORDERED: Metoprolol Tartrate 25 MG Tablet PO ONE (11:00)
[2018-10-14] MEDS: Mag Sulf 1 gm/100 ml Premix 100 ML IV.SIG SCH ×2 (11:04→12:23)
[2018-10-14] MEDS: Ferrous Sulfate 325 MG Tablet PO SCH ×2 (11:04→17:11)
[2018-10-14 11:22] LABS: Baso % (Auto) 0.2 % (0.0-2.0); Eos % (Auto) 0.2 % (0.0-4.0); Hematocrit 23.7 % (39.0-51.0); Hemoglobin 8.2 gm/dL (13.0-17.0); Lymph # (Auto) 0.8 th/mm3 (1.0-4.8); Lymph % (Auto) 7.8 % (9.0-44.0); Mean Corpuscular HGB Conc 34.7 % (32.0-36.0); Mean Corpuscular Hemoglobin 33.2 pg (27.0-34.0); Mean Corpuscular Volume 95.6 fL (80.0-100.0); Mean Platelet Volume 7.8 fL (7.0-11.0); Mono # (Auto) 0.8 th/mm3 (0.0-0.9); Mono % (Auto) 7.9 % (0.0-8.0); Neut # (Auto) 8.9 th/mm3 (1.8-7.7); Neut % (Auto) 83.9 % (16.0-70.0); Platelet Count 151 th/mm3 (150-450); Red Blood Count 2.48 mil/mm3 (4.50-5.90); White Blood Count 10.6 th/mm3 (4.0-11.0)
[2018-10-14 11:36] LABS: Anion Gap 7 meq/L (5-15); Blood Urea Nitrogen 14 mg/dL (7-18); Calcium 8.1 mg/dL (8.5-10.1); Carbon Dioxide 26.6 meq/L (21.0-32.0); Chloride 104 meq/L (98-107); Glomerular Filtration Rate Greater Than 89 mL/min (>89); Glucose,Random 106 mg/dL (74-106); Potassium 3.8 meq/L (3.5-5.1); Sodium 138 meq/L (136-145)
[2018-10-14] MEDS: Docusate Sodium 100 MG Capsule PO PRN (18:11)
[2018-10-15] MEDS: Insulin NovoLOG Aspart Correctional Sugar Inj SQ SCH ×3 (02:51→09:13)
--- NOTE | 2018-10-15 05:12 | XR ---
EXAM DATE: 10/15/2018 4:20 AM EST AGE/SEX: 78 years / Male INDICATIONS: Shortness of breath, possible pneumothorax. CLINICAL DATA: This is the patient's subsequent encounter. Patient reports that signs and symptoms h ave been present for 1 week and indicates a pain score of 3/10. MEDICAL/SURGICAL HISTORY: Carcinoma, esophageal. CABG. Tonsillectomy. Appendectomy. [place] [facility] [place]. . FINDINGS: Interval removal of left-sided chest tube, mediastinal drain and subclavian central line. Subtle left apical pneumothorax. Patchy bilateral lower lobe airspace disease with improved hazy opacities. Card iomediastinal contours are stable. CONCLUSION: 1. Interval removal of tubes and lines with subtle left apical pneumothorax. 2. Improved bilateral lower lung zone pleural-parenchymal disease. Electronically signed by: Rui Hidalgo MD Board Certified Radiologist 10/15/2018 5:10 AM SOLEDAD Quezada
[2018-10-15] MEDS: Multivitamin/Minerals Therapeutic Tablet PO SCH (09:14)
[2018-10-15] MEDS: Metoprolol Tartrate 25 MG Tablet PO SCH (09:14)
[2018-10-15] MEDS: Polyethylene Glycol 3350 17 GM Packet PO SCH (09:14)
[2018-10-15] MEDS: Amiodarone 200 MG Tablet PO SCH (09:14)
--- NOTE | 2018-10-15 10:33 | P.PNCV ---
- Note Subjective/Hospital Course: A 78-year-old male, patient of Dr. Henry Leahy, Dr. Fina Rodney, who presented to [facility] on 10/07/2018 with complaint of fatigue and nausea. Apparently the morning that he was admitted, he felt lightheaded and dizzy after mowing his lawn and weedwacking, went back inside and laid down and felt a little better, and then the same symptoms recurred. He also had pain and discomfort down his right arm and then had some shakiness in his right hand and also a headache. Denied having any chest pain or shortness of breath. No nausea or vomiting. He did have some elevated troponins and was ruled in for a non-STEMI. Troponin elevated at 1.16. He underwent a cardiac catheterization following the CT scan which showed no acute intracranial hemorrhage, some gross brain parenchymal edema or mass effect. They proceeded with a heart catheterization which showed an ejection fraction of 45%, left main disease of 60%, mid LAD 90% stenosis, the left circumflex was 90%, the first OM was 90% and the RCA was 95% stenosed. The patient was then transferred to our facility to be evaluated for coronary artery bypass grafting. 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 Mederos every 6 months, gastroesophageal reflux disease, arthritis. 10/10 pt pain free scheduled for surgery in am carotid US: Ok lower ext vein mapping : Ok 10/11 SURGICAL PROCEDURE 1. Urgent Off-pump Coronary Artery Bypass Grafting x 3 with Left Internal Mammary Artery (SHRESTHA) to Left Anterior Descending (LAD), reverse saphenous vein graft to obtuse Marginal branch of the left Circumflex artery, reverse saphenous vein graft to the posterior Descending branch of the right Coronary artery 2. Left leg Endoscopic Vein [place] 3. Intraoperative Vein Mapping. 10/12 Doing well Hemodynamically and clinically stable. Off of epinephrine drip Transfer [facility] Maintain chest tube Electrolyte supplementation 10/13 Doing well Chest tube continued to drain thin serous fluid. Evaluate for removal in a.m. Hemoglobin 7.8. Monitor for now. Will place on iron sulfate Ambulating well with assistance Discharge planning 10/14 doing well, chest tube dc without difficulty recheck HGB and BMP gentle diuresis coughing up thick old bloody sputum on room air 10/15 D/C SNF today Objective: Vital Signs - 24 hr 10/14/18 11:00 10/14/18 12:00 10/14/18 13:00 Temperature 97.9 F Pulse Rate 80 80 68 Respiratory Rate 16 Blood Pressure 129/75 Pulse Oximetry 94 L 10/14/18 14:00 10/14/18 15:00 10/14/18 15:15 Temperature 98.5 F Pulse Rate 82 77 83 Respiratory Rate 16 16 Blood Pressure 108/69 Pulse Oximetry 96 10/14/18 16:00 10/14/18 17:00 10/14/18 18:00 Temperature Pulse Rate 80 86 80 Respiratory Rate Blood Pressure Pulse Oximetry 10/14/18 19:00 10/14/18 20:00 10/14/18 20:40 Temperature 97.8 F Pulse Rate 88 78 76 Respiratory Rate 18 16 Blood Pressure 110/70 Pulse Oximetry 92 L 95 10/14/18 21:00 10/14/18 22:00 10/14/18 23:00 Temperature 96.7 F L Pulse Rate 82 76 76 Respiratory Rate 20 Blood Pressure 127/69 Pulse Oximetry 98 10/15/18 00:00 10/15/18 01:00 10/15/18 02:00 Temperature Pulse Rate 80 64 76 Respiratory Rate Blood Pressure Pulse Oximetry 10/15/18 03:00 10/15/18 04:00 10/15/18 04:13 Temperature 97.6 F Pulse Rate 80 72 80 Respiratory Rate 18 16 Blood Pressure 137/69 Pulse Oximetry 98 10/15/18 05:00 10/15/18 06:00 10/15/18 07:00 Temperature Pulse Rate 72 80 69 Respiratory Rate Blood Pressure Pulse Oximetry 10/15/18 10:28 Temperature Pulse Rate 74 Respiratory Rate 16 Blood Pressure Pulse Oximetry 95 Labs: Laboratory Results - last 12 hr 10/14/18 10/15/18 23:50 08:01 POC Glucose 98 75 Result Diagrams: 10/14/18 11:00 10/14/18 11:00 - Plan (1) S/P CABG x 3 Plan: ASA, statin, BB , amiodarone recheck HGB today on iron replacement gentle diuresis pulm toileting
--- NOTE | 2018-10-15 10:36 | P.DS ---
Date of admission: 10/08/18 20:11 Primary care physician: Fina Rodney MD Attending physician on discharge: Lakeisha Feliciano Anticipated date of discharge: 10/15/18 Brief History from admission: Subjective/Hospital Course: A 78-year-old male, patient of Dr. Henry Leahy, Dr. Fina Rodney, who presented to [facility] on 10/07/2018 with complaint of fatigue and nausea. Apparently the morning that he was admitted, he felt lightheaded and dizzy after mowing his lawn and weedwacking, went back inside and laid down and felt a little better, and then the same symptoms recurred. He also had pain and discomfort down his right arm and then had some shakiness in his right hand and also a headache. Denied having any chest pain or shortness of breath. No nausea or vomiting. He did have some elevated troponins and was ruled in for a non-STEMI. Troponin elevated at 1.16. He underwent a cardiac catheterization following the CT scan which showed no acute intracranial hemorrhage, some gross brain parenchymal edema or mass effect. They proceeded with a heart catheterization which showed an ejection fraction of 45%, left main disease of 60%, mid LAD 90% stenosis, the left circumflex was 90%, the first OM was 90% and the RCA was 95% stenosed. The patient was then transferred to our facility to be evaluated for coronary artery bypass grafting. 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 Mederos every 6 months, gastroesophageal reflux disease, arthritis. 1 DS: Diagnosis - Discharge Diagnosis (1) S/P CABG x 3 Status: Acute (2) CAD (coronary artery disease), [id number] coronary artery Status: Acute (3) Hyperlipidemia Status: Chronic (4) Hx of tongue cancer Status: Resolved DS: Medications - Discharge Medications Prescriptions: amiodarone 200 mg PO Q12HR #28 tab aspirin 81 mg PO DAILY #100 tab atorvastatin 40 mg PO HS #30 tab clopidogrel [Plavix] 75 mg PO DAILY #30 tab docusate sodium [DOK] 100 mg PO BID PRN #60 cap PRN Reason: Constipation ferrous sulfate [FeroSul] 325 mg PO BID@1200,1700 #60 tab hydrocodone-acetaminophen 1 tab PO Q4H PRN #40 tab PRN Reason: Pain Scale 1 To 5 metoprolol tartrate 25 mg PO BID #60 tab cmqxpvzp-rxui-KD-calcium-mins [Thera M Plus (ferrous fumarat)] 1 tab PO DAILY # 30 tab DS: Summary Hospital Course: Subjective/Hospital Course: A 78-year-old male, patient of Dr. Henry Leahy, Dr. Fina Rodney, who presented to [facility] on 10/07/2018 with complaint of fatigue and nausea. Apparently the morning that he was admitted, he felt lightheaded and dizzy after mowing his lawn and weedwacking, went back inside and laid down and felt a little better, and then the same symptoms recurred. He also had pain and discomfort down his right arm and then had some shakiness in his right hand and also a headache. Denied having any chest pain or shortness of breath. No nausea or vomiting. He did have some elevated troponins and was ruled in for a non-STEMI. Troponin elevated at 1.16. He underwent a cardiac catheterization following the CT scan which showed no acute intracranial hemorrhage, some gross brain parenchymal edema or mass effect. They proceeded with a heart catheterization which showed an ejection fraction of 45%, left main disease of 60%, mid LAD 90% stenosis, the left circumflex was 90%, the first OM was 90% and the RCA was 95% stenosed. The patient was then transferred to our facility to be evaluated for coronary artery bypass grafting. 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 Mederos every 6 months, gastroesophageal reflux disease, arthritis. 10/10 pt pain free scheduled for surgery in am carotid US: Ok lower ext vein mapping : Ok 10/11 SURGICAL PROCEDURE 1. Urgent Off-pump Coronary Artery Bypass Grafting x 3 with Left Internal Mammary Artery (SHRESTHA) to Left Anterior Descending (LAD), reverse saphenous vein graft to obtuse Marginal branch of the left Circumflex artery, reverse saphenous vein graft to the posterior Descending branch of the right Coronary artery 2. Left leg Endoscopic Vein [place] 3. Intraoperative Vein Mapping. 10/12 Doing well Hemodynamically and clinically stable. Off of epinephrine drip Transfer [facility]PC[facility] Maintain chest tube Electrolyte supplementation 10/13 Doing well Chest tube continued to drain thin serous fluid. Evaluate for removal in a.m. Hemoglobin 7.8. Monitor for now. Will place on iron sulfate Ambulating well with assistance Discharge planning 10/14 doing well, chest tube dc without difficulty recheck HGB and BMP gentle diuresis coughing up thick old bloody sputum on room air 10/15 D/C SNF today - Time Spent with Patient Total time spent providing and/or coordinating discharge services: Less than 30 minutes - Quality: VTE Deep Vein Thrombosis/Pulmonary Embolism Present on Admission: No Exam Vital signs: Vital Signs 10/14/18 11:00 10/14/18 12:00 10/14/18 13:00 Temperature 97.9 F Pulse Rate 80 80 68 Respiratory Rate 16 Blood Pressure 129/75 Pulse Oximetry 94 L 10/14/18 14:00 10/14/18 15:00 10/14/18 15:15 Temperature 98.5 F Pulse Rate 82 77 83 Respiratory Rate 16 16 Blood Pressure 108/69 Pulse Oximetry 96 10/14/18 16:00 10/14/18 17:00 10/14/18 18:00 Temperature Pulse Rate 80 86 80 Respiratory Rate Blood Pressure Pulse Oximetry 10/14/18 19:00 10/14/18 20:00 10/14/18 20:40 Temperature 97.8 F Pulse Rate 88 78 76 Respiratory Rate 18 16 Blood Pressure 110/70 Pulse Oximetry 92 L 95 10/14/18 21:00 10/14/18 22:00 10/14/18 23:00 Temperature 96.7 F L Pulse Rate 82 76 76 Respiratory Rate 20 Blood Pressure 127/69 Pulse Oximetry 98 10/15/18 00:00 10/15/18 01:00 10/15/18 02:00 Temperature Pulse Rate 80 64 76 Respiratory Rate Blood Pressure Pulse Oximetry 10/15/18 03:00 10/15/18 04:00 10/15/18 04:13 Temperature 97.6 F Pulse Rate 80 72 80 Respiratory Rate 18 16 Blood Pressure 137/69 Pulse Oximetry 98 10/15/18 05:00 10/15/18 06:00 10/15/18 07:00 Temperature Pulse Rate 72 80 69 Respiratory Rate Blood Pressure Pulse Oximetry 10/15/18 10:28 Temperature Pulse Rate 74 Respiratory Rate 16 Blood Pressure Pulse Oximetry 95 Intake & Output 10/14/18 10/15/18 10/15/18 18:59 06:59 18:59 Intake Total 1200 / 1200 480 / 480 Output Total 3230 / 3230 350 / 350 Balance -2029 / -2029 130 / 130 Weight 85.9 kg Intake: IV 200 / 200 Magnesium Sulfate 1 gm/D5W 100 200 / 200 ml Premix 100 ML @ 100 mls/hr IV.SIG Q1H TYE Rx#:[id number] Oral 1000 / 1000 480 / 480 Output: Urine 3230 / 3230 350 / 350 Other: Date of Last Bowel Movement 10/14/18 10/14/18 # Bowel Movements 1 1 Results Procedures completed during hospitalization: 10/11 SURGICAL PROCEDURE 1. Urgent Off-pump Coronary Artery Bypass Grafting x 3 with Left Internal Mammary Artery (SHRESTHA) to Left Anterior Descending (LAD), reverse saphenous vein graft to obtuse Marginal branch of the left Circumflex artery, reverse saphenous vein graft to the posterior Descending branch of the right Coronary artery 2. Left leg Endoscopic Vein [place] 3. Intraoperative Vein Mapping. Labs on day of discharge: Labs from last 24 hours 10/15/18 10/14/18 10/14/18 08:01 23:50 16:47 WBC RBC Hgb Hct MCV MCH MCHC RDW Plt Count MPV Neut % (Auto) Lymph % (Auto) [place] % (Auto) Eos % (Auto) Baso % (Auto) Neut # (Auto) Lymph # (Auto) [place] # (Auto) Eos # (Auto) Baso # (Auto) WBC Differential Differential Comment Sodium Potassium Chloride Carbon Dioxide Anion Gap BUN Creatinine Estimated GFR POC Glucose 75 98 96 Random Glucose Calcium Magnesium 10/14/18 10/14/18 10/14/18 11:36 11:00 11:00 WBC RBC Hgb Hct MCV MCH MCHC RDW Plt Count MPV Neut % (Auto) Lymph % (Auto) [place] % (Auto) Eos % (Auto) Baso % (Auto) Neut # (Auto) Lymph # (Auto) [place] # (Auto) Eos # (Auto) Baso # (Auto) WBC Differential Differential Comment Sodium 138 Potassium 3.8 Chloride 104 Carbon Dioxide 26.6 Anion Gap 7 BUN 14 Creatinine 0.71 Estimated GFR Greater than 89 POC Glucose 111 H Random Glucose 106 Calcium 8.1 L Magnesium 1.8 10/14/18 11:00 WBC 10.6 RBC 2.48 L Hgb 8.2 L Hct 23.7 L MCV 95.6 MCH 33.2 MCHC 34.7 RDW 14.0 Plt Count 151 D MPV 7.8 Neut % (Auto) 83.9 H Lymph % (Auto) 7.8 L [place] % (Auto) 7.9 Eos % (Auto) 0.2 Baso % (Auto) 0.2 Neut # (Auto) 8.9 H Lymph # (Auto) 0.8 L [place] # (Auto) 0.8 Eos # (Auto) 0.0 Baso # (Auto) 0.0 WBC Differential . Differential Comment Auto diff final Sodium Potassium Chloride Carbon Dioxide Anion Gap BUN Creatinine Estimated GFR POC Glucose Random Glucose Calcium Magnesium - Impressions ITS Impressions Carotid Doppler Study 10/09/18 11:01 CONCLUSION: 1. Right Internal Carotid Artery: No significant stenosis or atherosclerotic plaque is visualized. 2. Left Internal Carotid Artery: No significant stenosis or atherosclerotic plaque is visualized. Lower Extremity Ultrasound 10/09/18 11:01 CONCLUSION: 1. Lower extremity venous mapping and measurements are detailed above. No thrombosis is noted within either saphenous vein. Venous Doppler Study 10/09/18 11:01 CONCLUSION: 1. The study is negative for bilateral lower extremity deep venous thrombosis. Chest X-Ray 10/15/18 06:00 CONCLUSION: 1. Interval removal of tubes and lines with subtle left apical pneumothorax. 2. Improved bilateral lower lung zone pleural-parenchymal disease. Discharge Plan - Discharge Disposition Patient Disposition: W/Home Health Service - Discharge Condition Condition: Good - Discharge Order Discharge Orders: Discharge Order (Routine); Ordered 10/15/18 Ordered By: Lakeisha Feliciano - Discharge Details Anticipated Discharge Date: 10/15/18 - Physicians Team Primary Care Provider: Fina Rodney Attending Provider: Lakeisha Feliciano Other Providers: [employer],Insurance ; [facility] - Rxs /Orders / Referrals /Forms Prescriptions: New amiodarone 200 mg Tablet 200 mg PO Q12HR Qty: 28 RF: 0 aspirin 81 mg Tablet,Chewable 81 mg PO DAILY Qty: 100 RF: 2 atorvastatin 40 mg Tablet 40 mg PO HS Qty: 30 RF: 2 clopidogrel [Plavix] 75 mg Tablet 75 mg PO DAILY Qty: 30 RF: 2 docusate sodium [DOK] 100 mg Capsule 100 mg PO BID PRN (Reason: Constipation) Qty: 60 RF: 0 ferrous sulfate [FeroSul] 325 mg (65 mg iron) Tablet 325 mg PO BID@1200,1700 Qty: 60 RF: 0 hydrocodone-acetaminophen 5-325 mg Tablet 1 tab PO Q4H PRN (Reason: Pain Scale 1 To 5) Qty: 40 RF: 0 metoprolol tartrate 25 mg Tablet 25 mg PO BID Qty: 60 RF: 2 zxmbdmvm-adza-DS-calcium-mins [Thera M Plus (ferrous fumarat)] 9 mg iron-400 mcg Tablet 1 tab PO DAILY Qty: 30 RF: 2 Referrals: [facility], [Agency] - See Instructions Moriah Marr [ADVANCE RN PRACTITIONER] - See Instructions ( Your appointment has been scheduled for [10/29/18] at [11:45 am] If you cannot make this appointment, please call the office to reschedule ) Henry Leahy MD [Physician] - See Instructions ( Your appointment has been scheduled for [11/07/18] at [11:00 am] If you cannot make this appointment, please call the office to reschedule ) Fina Rodney MD [Primary Care Provider] - See Instructions ( Your appointment has been scheduled for [10/17/18] at [8:45 am] If you cannot make this appointment, please call the office to reschedule ) - Discharge Instructions Additional Instructions: HOME HEALTH CARE HAS BEEN ARRANGED WITH [facility], CONTACT# PREVENA Single Use Negative Wound Therapy System Caregiver Instruction Sheet 1. A Prevena dressing system was applied to the chest incision during surgery , to promote wound healing. It works via a suction device (negative pressure wound therapy) to remove low to moderate levels of exudate (drainage) and infectious materials. We recommend that the device stay in place for up to seven days, from day of surgery. 2. Day of Surgery__10/11/18 Day of Removal ____10/18/18 3. The dressing should only be removed by a health healthcare administration intern. Please arrange removal of device to coincide with Home Health visit and or with Nursing staff at Rehab 4. If skin reddening or irritation of skin occurs, or excessive drainage, please notify the Cardiovascular Surgeons office at [phone]. 5. Light showering is permissible; however the pump should be disconnected and placed in safe location, where it will not get wet. The dressing should not be exposed to direct spray or submerged in water. No bath tub / shower only. Ensure the end of the tubing attached to the dressing is facing down so that water does not enter the top of the tube. 6. To remove Prevena dressing: press purple button to turn off device / remove the suction. Then disconnect the tubing from the pump. The fixation strips should be stretched away from the skin and the dressing lifted at one corner and peeled back until it has been fully removed. 7. After removal, it is ok to shower daily using liquid dial soap and clean wash cloth, rinse and pat dry, and leave incision open to air dry. For any concerns regarding Prevena dressing, and or wounds, please contact Cristina Mosquera, patient navigator at [phone] or notify the Cardiovascular Surgeons office at [phone]. Incentive spirometry Q1 hr x 10, while awake, also use acapella device hourly whole awake Sternal Breast Bone Precautions: NO pushing or pulling, ( pt must use sternal pillow to support chest with all activities and with coughing ( takes up to 3 months breast bone to heal ) Daily incision care: ok to shower daily, no tub bath. Wash all incisions with liquid dial soap, clean wash cloth to each site, rinse and pat dry. Observe for any signs of infection, such as drainage which is dark yellow, ndiaye, green or foul smelling. Immediately report to the surgeon any drainage from the chest incision, or legs, and for any abnormal drainage from the chest tube sites. Notify surgeon if any temp >101.5 degrees F. When specialty dressing removed/ or if you do not have one, continue to shower daily as above, then rinse and pat incision dry and paint with betadine daily x 5 days. Allow steri strips to fall off if you have any. Avoid lotions, creams, salves, oils, etc. for the first month Please see attached forms for additional instructions regarding post Open Heart specialty wound vacuum dressings. ANGÉLICA or Prevena , Dressing to be removed by Nursing staff on __10/18/18 F/U appointment: as per DC instructions: PCP in 2 weeks, CV surgeon 2 weeks, Architecture Professor 3-4 weeks For any questions regarding incisions/ dressing / meds / post op care or above Symptoms, Sunday 8am-5pm Heart & Vascular Surgery Office ( Dr. Feliciano & Dr. Valencia), After Hours / Nights (5pm -8am) Weekends and Holidays Please call [facility] Cardiac Intermediate Care Unit (CIC) Charge Nurse
== END 2018-10-15 13:51 ==
LOC: HCPC 20:11 → HCVI 10-11 12:43 → HCPC 10-12 09:06
PROVIDERS: ADMIT Thoracic Surgery (Cardiothoracic Vascular Surgery); ATTEND Thoracic Surgery (Cardiothoracic Vascular Surgery)